=== PATIENT | male | born 1970 | race Hispanic/Latino ===

== ENCOUNTER 2018-08-20 19:53 | Emergency (ER) | payer OTHER, BC ==
[2018-08-20 20:01] VITALS: BP 161/90; PULSE 82; RESP 18; TEMP 98.1; O2SAT 99
--- NOTE | 2018-08-20 20:30 | C.PDOC ---
History Of Present Illness 48 year old male presents to the ER after a 10 pound metal plate fell on his left foot while at work. Patient had no pain, he was able to ambulate for 4 hours after the injury and was able to finish working but now noticed swelling to the area. Patient has a Hx of fracture to the same foot with surgery 25 years ago. Denies weakness or numbness. Time Seen by Provider: 08/20/18 20:20 Chief Complaint (Nursing): Lower Extremity Problem/Injury History Per: Patient History/Exam Limitations: no limitations Onset/Duration Of Symptoms: Hrs Current Symptoms Are (Timing): Still Present Recent travel outside of the [place]: No - Ankle/Foot Description Of Injury: Struck With Object Past Medical History Reviewed: Historical Data, Nursing Documentation, Vital Signs Vital Signs: Last Vital Signs Temp 98.1 F 08/20/18 19:59 Pulse 82 08/20/18 19:59 Resp 18 08/20/18 19:59 BP 161/90 H 08/20/18 19:59 Pulse Ox 99 08/20/18 19:59 Surgical History: Coronary Stent (X2) Family History: States: Unknown Family Hx - Social History Hx Alcohol Use: No Hx Substance Use: No Review Of Systems Musculoskeletal: Positive for: Other (Left foot swelling). Negative for: Foot Pain Neurological: Negative for: Weakness, Numbness Physical Exam - Physical Exam Appears: Non-toxic Skin: Normal Color, Warm, Dry Head: Atraumatic, Normacephalic Eye(s): bilateral: Normal Inspection Extremity: Normal ROM (x4), No Tenderness, Capillary Refill (<2 seconds), Other (Swelling to left dorsal midfoot not involving the toes. Light faint scar to dorsal left foot. No ecchymosis, erythema, abrasions, or lacerations.) Pulses: Left Dorsalis Pedis: Normal, Right Dorsalis Pedis: Normal Neurological/Psych: Oriented x3, Normal Speech, Normal Motor, Normal Sensation Gait: Steady ED Course And Treatment O2 Sat by Pulse Oximetry: 99 (room air) Pulse Ox Interpretation: Normal - Other Rad Left foot x-ray X-Ray: Interpreted by Me, Viewed By Me Interpretation: No acute fracture or dislocation. Progress Note: Left foot x-ray ordered, results were negative. Patient is resting comfortably in the ER in no acute distress, ambulatory with steady gait, vitals are stable, discussed x-ray finding with patient, advised him that he will be notified if any discrepancy is found in the x-ray, and advised to follow up with PMD for further evaluation. Disposition Counseled Patient/Family Regarding: Diagnosis, Need For Followup - Disposition Referrals: Podiatry Clinic [Outside] Disposition: HOME/ ROUTINE Disposition Time: 20:30 Condition: STABLE Additional Instructions: Leg elevation Apply ICE to area Follow up with PMD/ foot doctor as needed Tylenol or advil if pain Return to ER if worse Instructions: Contusion (DC) Forms: [employer] (Angolan) - Clinical Impression Clinical Impression: Contusion of left foot - PA / APPLICATION ARCHITECT / Resident Statement MD/DO has reviewed & agrees with the documentation as recorded. - Scribe Statement The provider has reviewed the documentation as recorded by the Scribkvng Rain All medical record entries made by the Tariibkvgn were at my direction and personally dictated by me. I have reviewed the chart and agree that the record accurately reflects my personal performance of the history, physical exam, medical decision making, and the department course for this patient. I have also personally directed, reviewed, and agree with the discharge instructions and disposition.
--- NOTE | 2018-08-21 11:39 | RAD ---
Date of service: 08/20/2018 PROCEDURE: Left Foot Radiographs. HISTORY: swelling, hematoma, dorsal foot, blunt trauma COMPARISON: None. FINDINGS: BONES: No fracture. Plantar calcaneal spur incidentally noted. JOINTS: Normal. SOFT TISSUES: Soft tissue swelling noted over the dorsal aspect of the metatarsals. OTHER FINDINGS: None. IMPRESSION: No acute fracture. Dorsal soft tissue swelling at the level of the metatarsals.
== END 2018-08-20 21:44 | disposition home or self-care (01) ==
LOC: C.ER 19:53
DX: S90.32XA Contusion of left foot, initial encounter (principal); W22.8XXA Striking against or struck by other objects, initial encounter; Y92.89 Other specified places as the place of occurrence of the external cause; Y99.0 Civilian activity done for income or pay